=== PATIENT | male | born 1980 | race African-American/Black ===

== ENCOUNTER → 2018-07-11 | Outpatient (CLI) | payer OTHER ==
--- NOTE | 2018-07-11 11:10 | REP ---
Lumbar spine five views History: Back pain There is no acute fracture or subluxation. Intervertebral discs are normal in height. The facet joints are normal in appearance. Impression: There is no acute fracture or subluxation. Electronically Signed by Keon Hutchinson MD 07/11/2018 11:02 A
--- NOTE | 2018-07-11 11:41 | REP ---
Clinical: Right hip pain. Technique: Neutral and frog lateral views of the right hip. Findings: No acute fracture dislocation. No significant arthritic changes. Surrounding soft tissues are unremarkable. Impression: Age-appropriate right hip radiographs. If the patient remains symptomatic consider MRI for further investigation. Electronically Signed by Meek Yañez MD 07/11/2018 11:32 A
== END ==
LOC: M RAD 09:25
PROVIDERS: ATTEND Surgery
DX: M54.5 Low back pain (principal); M25.551 Pain in right hip

== ENCOUNTER → 2018-07-29 | Outpatient (CLI) | payer OTHER ==
--- NOTE | 2018-07-29 12:22 | REP ---
RIGHT FOOT, FOUR VIEWS: HISTORY: 1st metatarsal pain. There is no acute fracture or dislocation. The joint spaces are normal in appearance. IMPRESSION: There is no acute fracture or dislocation. Electronically Signed by Keon Hutchinson MD 07/29/2018 12:24 P
== END ==
LOC: M RAD 08:53
PROVIDERS: ATTEND Surgery
DX: M25.571 Pain in right ankle and joints of right foot (principal)